=== PATIENT | female | born 1975 | race Caucasian/White ===

== ENCOUNTER 2021-05-28 09:04 | Day surgery (SDC) | payer OTHER ==
[2021-05-28] MEDS ORDERED: FERRIC CARBOXYMALTOSE 750 MG in SODIUM CHLORIDE 250 ML IVPB ONE (11:00)
[2021-05-28 12:36] VITALS: BP 133/78; PULSE 86; TEMP 98.3
== END 2021-05-28 12:00 | disposition home or self-care (01) ==
LOC: FINFUSION 09:04 → FM/S 09:32 → FINFUSION 12:00
PROVIDERS: ATTEND Family Medicine
PROC: 3E033GC Introduction of Other Therapeutic Substance into Peripheral Vein, Percutaneous Approach (ICD-10-PCS; principal; 2021-05-28)
DX: D50.9 Iron deficiency anemia, unspecified (principal)
CPT/HCPCS: 81025; 96365; J1439

== ENCOUNTER 2021-06-04 11:10 | Day surgery (SDC) | payer OTHER ==
[2021-06-04] MEDS ORDERED: FERRIC CARBOXYMALTOSE 750 MG in SODIUM CHLORIDE 250 ML IVPB ONE (11:30)
[2021-06-04 15:40] VITALS: BP 145/75; PULSE 82; TEMP 98
== END 2021-06-04 13:00 | disposition home or self-care (01) ==
LOC: FINFUSION 11:10 → FM/S 11:11 → FINFUSION 13:00
PROVIDERS: ATTEND Family Medicine
PROC: 3E033GC Introduction of Other Therapeutic Substance into Peripheral Vein, Percutaneous Approach (ICD-10-PCS; principal; 2021-06-04)
DX: D50.9 Iron deficiency anemia, unspecified (principal)
CPT/HCPCS: 96365; J1439